=== PATIENT | female | born 1990 | race African-American/Black ===

== ENCOUNTER 2022-10-12 16:01 | Emergency (ER) | payer OTHER ==
[~2022-10-12] VITALS: Ht 177.8 cm; Wt 74.8 kg
--- NOTE | 2022-10-12 16:23 | NUR ---
URINE SAMPLE PROVIDED BY TOR
[2022-10-12 17:11] LABS: BILIRUBIN,URINE NEGATIVE (NEGATIVE); COLOR,URINE YELLOW (YELLOW); LEUKOCYTE ESTERASE ,URINE 1+ (NEGATIVE); NITRITE, URINE POSITIVE (NEGATIVE); PROTEIN,URINE NEGATIVE (NEGATIVE); UGLUCOSE NEGATIVE (NEGATIVE); UROBILINOGEN,URINE 0.2 EU/dL (0.2)
[2022-10-12 17:27] LABS: RBC,URINE 21-50 /HPF (0-2); WBC,URINE 21-50 /HPF (0-3)
[2022-10-12 17:28] LABS: BACTERIA,URINE Many /HPF (None Seen); SQUAMOUS EPITHELIAL CELL,UR Moderate /HPF (None Seen)
--- NOTE | 2022-10-12 17:30 | NUR ---
AWAKE AND ALERT NO PAIN NOTED AT THIS TIME
[2022-10-12] MEDS ORDERED: PHEN-705 PO (17:46)
[2022-10-12] MEDS ORDERED: CEPH500C2 PO (17:46)
--- NOTE | 2022-10-12 17:57 | NUR ---
Patient discharged to home in stable condition. Written and verbal after care instructions given. Patient verbalizes understanding of instruction.
[2022-10-12 18:05] VITALS: BP 151/81
== END 2022-10-12 18:07 | disposition home or self-care (01) ==
LOC: ER 16:03
DX: N39.0 Urinary tract infection, site not specified (principal); Z79.899 Other long term (current) drug therapy
CPT/HCPCS: 81001; 84703-TC; 87086-TC

== ENCOUNTER 2025-04-14 16:06 | Emergency (ER) | payer OTHER ==
[~2025-04-14] VITALS: Ht 175.3 cm; Wt 77.1 kg
[~2025-04-14 16:06] MED LIST: CEPH500C2 PO; OLOP2.5D12 EACHEYE; PHEN-705 PO
[2025-04-14 17:05] VITALS: BP 110/70; TEMP 98.3; O2SAT 98
== END 2025-04-14 17:06 | disposition home or self-care (01) ==
LOC: ER 16:06
DX: S91.001A Unspecified open wound, right ankle, initial encounter (principal); Z79.899 Other long term (current) drug therapy; Z48.00 Encounter for change or removal of nonsurgical wound dressing; X58.XXXA Exposure to other specified factors, initial encounter; Y93.9 Activity, unspecified; Y92.89 Other specified places as the place of occurrence of the external cause; Y99.8 Other external cause status